=== PATIENT | female | born 1995 | race Caucasian/White ===

== ENCOUNTER 2022-09-28 05:59 | Day surgery (SDC) | payer OTHER, SELFPAY ==
[2022-09-23 11:19] VITALS: BMI 30.1
[2022-09-28 06:30] VITALS: BMI 29.9
[2022-09-28 06:40] VITALS: BP 126/83; PULSE 78; RESP 16; TEMP 36; O2SAT 99
[2022-09-28] MEDS: LACTATED RINGERS 1,000 ML 150 ML IV CONT (06:50)
--- NOTE | 2022-09-28 07:02 | WPDANESEPPF ---
Anes - Initial Pre Proc Eval Procedure: Operation Date: 09/28/22 07:30 Proposed Procedures p Esophagogastroduodenoscopy - Kevin Gotti MD Date/Time: 09/28/22 07:02 Surgeon: Kevin Gotti MD Pre Op Diagnosis: Hematemesis, Gerd without Esophagitis Patient Data Age: 26 Gender: F Height: 1.6 m Weight: 76.8 kg Allergies Allergy/AdvReac Type Severity Reaction Status Date / Time Penicillins Allergy Hives Verified 09/28/22 06:26 bupropion [From Wellbutrin] AdvReac Other Verified 09/28/22 06:26 escitalopram [From Lexapro] AdvReac Other Verified 09/28/22 06:26 sertraline [From Zoloft] AdvReac Other Verified 09/28/22 06:26 Home Medications Medication Instructions Recorded Confirmed Type aripiprazole 2 mg tablet (Abilify) 2 mg PO DAILY #90 tabs 06/02/22 09/28/22 Rx citalopram 10 mg tablet 10 mg PO DAILY #90 tabs 06/02/22 09/28/22 Rx pantoprazole 40 mg tablet,delayed 40 mg PO BID #60 tabs 09/16/22 09/28/22 Rx release Patient hx anesthesia problems: none Family hx anesthesia problems: none Results Review: All pre-operative results and documents have been reviewed as part of the pre-operative evaluation. [facility] Past Medical History Medical History ADD (attention deficit disorder) Anxiety Depression Mood disturbance OCD (obsessive compulsive disorder) Vitamin B 12 deficiency Vitamin D deficiency, unspecified Surgical History Surgical History Cholecystectomy planned (2017) Social History Social History Years smoked: 0.7 Smoking status: Current every day smoker Tobacco type: cigarettes Alcohol intake: never Substance use: current Substance use type: marijuana Living arrangements: with family Spiritual care concerns: No Anes - Eval Final PreProcedure Day of Procedure 09/28/22 07:02 Patient weight: obese Heart: regular rate and rhythm Lungs: clear to auscultation and normal air movement Airway: Mallampati scale class II Neurological: alert and oriented Last oral intake: >/= 8 hours ASA classification: II Emergent: no Anesthetic plan: proceed Anesthesia type and monitoring: general GIVS Results Review: All pre-operative results and documents have been reviewed as part of the pre-operative evaluation. Informed Consent: The patient's anesthetic plan and its attendant risks and benefits were discussed with the patient/family/POA. Questions were solicited and answers provided to the satisfaction of the patient/family/POA.
--- NOTE | 2022-09-28 07:37 | PM.HPGS ---
History of Present Illness History of Present Illness Consent: Risks, benefits, and alternatives have been discussed and questions answered. Patient agrees to proceed with procedure. Chief complaint: Hematemesis, Gerd without Esophagitis Narrative: Martha Uriarte is a 26 year old female Presents for EGD. Patient reports that about 2 weeks ago after a night of drinking she experienced hematemesis. This occurred several other episodes later in the week. During this week she began to have some black melenic stools. For this reason she presents for EGD. Patient states she has ongoing epigastric discomfort. Sometimes nausea. Sometimes heartburn. Several years ago had cholecystectomy for acalculous cholecystitis but this failed to alleviate these symptoms. Patient denies any weight loss. Family history is noncontributory. Current medications include pantoprazole 40mg p.o. b.i.d.. For presumed ulcers. Review of Systems Review of Systems: Review of systems noncontributory. PMFSH Past Medical History Medical History ADD (attention deficit disorder) Anxiety Depression Mood disturbance OCD (obsessive compulsive disorder) Vitamin B 12 deficiency Vitamin D deficiency, unspecified Surgical History Surgical History Cholecystectomy planned (2016) Social History Social History Years smoked: 0.7 Smoking status: Current every day smoker Tobacco type: cigarettes Alcohol intake: never Substance use: current Substance use type: marijuana Living arrangements: with family Spiritual care concerns: No Meds Home Medications and Allergies Home Medications Medication Instructions Recorded Confirmed Type aripiprazole 2 mg tablet (Abilify) 2 mg PO DAILY #90 tabs 06/02/22 09/28/22 Rx citalopram 10 mg tablet 10 mg PO DAILY #90 tabs 06/02/22 09/28/22 Rx pantoprazole 40 mg tablet,delayed 40 mg PO BID #60 tabs 09/16/22 09/28/22 Rx release Allergies Allergy/AdvReac Type Severity Reaction Status Date / Time Penicillins Allergy Hives Verified 09/28/22 06:26 bupropion [From Wellbutrin] AdvReac Other Verified 09/28/22 06:26 escitalopram [From Lexapro] AdvReac Other Verified 09/28/22 06:26 sertraline [From Zoloft] AdvReac Other Verified 09/28/22 06:26 Vital Signs Vital Signs - 24 hr 09/28/22 06:40 Temperature 96.8 F L Pulse Rate 78 Respiratory Rate 16 Blood Pressure 126/83 Pulse Oximetry 99 Oxygen Delivery Room Air Exam Narrative: Physical exam reveals patient be alert. Vital signs stable. HEENT exam is unremarkable. Patient is anicteric. Lungs are clear to auscultation and percussion. Heart is without murmur or extra sounds. Abdomen bowel sounds present soft nontender with no hepatosplenomegaly. Assessment and Plan Assessment and plan (1) Hematemesis: Code(s): K92.0 - Hematemesis Status: Acute Assessment and Plan: patient has has had several episodes of hematemesis 2 weeks ago. Plan for EGD to assess for possible ulcer or other lesions. Agree with trial of pantoprazole for possible ulcer disease. Further recommendations may be given after endoscopy.
[2022-09-28 07:54] VITALS: BP 105/54; PULSE 58; RESP 16; O2SAT 100
[2022-09-28 08:04] VITALS: BP 101/61; PULSE 70; RESP 18; O2SAT 99
[2022-09-28 08:14] VITALS: BP 109/73; PULSE 71; RESP 18; O2SAT 100
--- NOTE | 2022-09-28 10:53 | WPDANESPN ---
Anes - Prog Note Post-Op Date/Time: 09/28/22 10:53 Cardiovascular status: normal Respiratory status: normal Airway patency: baseline Mental status: baseline Post-Op hydration status: normal Vital Signs: Last Vital Signs Temp 36.0 C L 09/28/22 06:40 Pulse 71 09/28/22 08:14 Resp 18 09/28/22 08:14 BP 109/73 09/28/22 08:14 Pulse Ox 100 09/28/22 08:14 O2 Del Method Room Air 09/28/22 08:14 Pain Score (VAS): 0 I/O: Intake & Output 09/27/22 09/28/22 09/28/22 23:59 07:59 15:59 Intake Total 300 50 Balance 300 50 Post-procedural complaints: none Patient Feedback: Patient satisfied with anesthetic care.
== END 2022-09-28 08:33 | disposition home or self-care (01) ==
PROVIDERS: PCP Nurse Practitioner Family; Visit Provider Internal Medicine Gastroenterology
PROC: 0DJ08ZZ Inspection of Upper Intestinal Tract, Via Natural or Artificial Opening Endoscopic (ICD-10-PCS; CPT 43235; principal; 2022-09-28 07:30)
DX: K92.0 Hematemesis (principal)
CPT/HCPCS: 43239

== ENCOUNTER 2024-06-20 12:05 | Outpatient (CLI) | payer OTHER, SELFPAY ==
[2024-06-20 13:22] LABS: Alanine Aminotransferase 25 U/L (6-35); Albumin Level 5.2 g/dL (3.5-5.1); Alkaline Phosphatase 76 U/L (38-126); Aspartate Amino Transferase 30 U/L (14-36); Bilirubin Indirect 2.2 mg/dL (0-1.1); Bilirubin,Total 2.3 mg/dL (0.2-1.3)
--- OUTSIDE RECORDS SUMMARY | 2024-06-20 13:56 | XMS_ITS | Clinical Summary ---
Author Organization [facility] [address] [facility] Address [address] [place] [id number] Care Team Providers Care Cad Operator Name Role Phone Gerald Posey MD Unavailable [phone] Aure Smart NP Primary Care Provider Allergies Active Allergy Reactions Criticality Noted Date Comments Penicillins Hives Medium 02/13/2019 Medications No known medications Active Problems Problem Noted Date Diagnosed Date Rash 08/21/2022 Assessment & Plan (08/21/2022 2:21 PM CDT): ?Eczema. Recommend derm evaluation. Syncope 08/21/2022 Assessment & Plan (08/21/2022 2:21 PM CDT): She reports syncopal episode x2 which was accompanied by a racing heart/palpitations, dizziness, and diaphoresis. Discuss with PCP and consider cardiology evaluation. Diarrhea 08/21/2022 Assessment & Plan (08/21/2022 2:23 PM CDT): She notes 5-10 bowel movements per day. She has also had nocturnal bowel movements as well as tenesmus. She reports a largely unremarkable EGD and colonoscopy in 2020. Recommend GI evaluation. Polyarthralgia 08/19/2022 Overview (09/29/2022): Labs 08/21/2022 AVISE: ULISSES 1:160 CBC and CMP unremarkable ESR and CRP wnl Ultrasound 08/26/2022 US right hand/wrist: Grade 1 effusion in the radial scaphoid joint and 2nd and 3rd MCP joints. Marked synovial thickening in the 2nd and 3rd PIP joints. Assessment & Plan (10/22/2022 2:36 PM CDT): 26yoQing presents for evaluation due to a broad constellation of symptoms for the last 2+ years. She reports myalgias and arthralgias that do not sound particularly inflammatory. She has had rashes primarily on her arms, today has dry/flaky skin on her hands/wrists which she attributes to frequent washing due to her OCD. She has chronic GI complaints with a reportedly negative colonoscopy. By exam she has numerous tender points and tender joints without synovitis. Our workup shows an isolated ULISSES and hand ultrasound without significant inflammatory arthritis. Overall there is not evidence to support an active rheumatologic diagnosis. Overall favor fibromyalgia and with her constellation of other symptoms would also consider overlap with IBS and potentially POTS. Recommend derm evaluation for skin and GI for her chronic gastrointestinal symptoms. Otherwise she will follow up with PCP and can return here as needed. Assessment & Plan (08/21/2022 2:20 PM CDT): 26yoQing presents for evaluation due to a broad constellation of symptoms for the last 2+ years. She reports myalgias and arthralgias that do not sound particularly inflammatory. She has had rashes primarily on her arms, today has dry/flaky skin on her hands/wrists which she attributes to frequent washing due to her OCD. She has chronic GI complaints with a reportedly negative colonoscopy. By exam today she has numerous tender points and tender joints without synovitis. Overall suspect fibromyalgia and with her constellation of other symptoms would also consider overlap with IBS and potentially POTS. Recommend derm evaluation for skin and GI for her chronic gastrointestinal symptoms. To further evaluate for underlying rheumatologic diagnosis, will check labs as below and obtain an US of her hand/wrist to look for inflammatory arthritis. Plan for follow up in 2 weeks to review results. Social History Tobacco Use Types Packs/Day Years Used Date Smoking Tobacco: Never Assessed Comments Unknown Sex and Gender Information Value Date Recorded Sex Assigned at Not on file Legal Sex Female 2:20 PM CDT Gender Identity Not on file Sexual Orientation Not on file Obstetrics History Last Filed Vital Signs Vital Sign Reading Time Taken Comments Blood Pressure 126/74 10/22/2022 1:46 PM CDT Pulse 70 10/22/2022 1:46 PM CDT Temperature - - Respiratory Rate - - Oxygen Saturation 97% 10/22/2022 1:46 PM CDT Inhaled Oxygen Concentration - - Weight 78 kg (172 lb) 10/22/2022 1:46 PM CDT Height 160 cm (5' 3 ) 10/22/2022 1:46 PM CDT Body Mass Index 30.47 10/22/2022 1:46 PM CDT Plan of Treatment Health Maintenance Due Date Last Done Comments Cervical Cancer Screening 1997 Depression Screening 1997 Hepatitis C Screening 1997 DTaP/Tdap/Td Vaccine (1 - Tdap) 2008 Varicella Vaccines (1 of 2 - 13+ 2-dose series) 2010 HPV Vaccines (1 - 3-dose series) 2012 Hepatitis B Screening 11/14/2015 Regular Well Visit/Exam 18-64 11/14/2015 Influenza Vaccine (#1) 2023 Pneumococcal vaccine <65 Aged Out No longer eligible based on patient's age to complete this topic Insurance [facility] CHOICE PLUS [facility] HMO/PPO Address: [facility] [address] [address] Care Teams Cad Operator Relationship Specialty Start Date End Date Aure Smart NP [address] [place] [id number] PCP - General Nurse Practitioner 10/22/22 Gerald Posey MD [facility] [place] [address] Consulting Physician Rheumatology 08/06/22
--- OUTSIDE RECORDS SUMMARY | 2024-06-20 13:56 | XMS_ITS | Referral Summary ---
Author Organization [facility] Address [address] [address] Care Team Providers Care Fudger Name Role Phone Unavailable Primary Care Provider Unavailabl e Source Comments [facility],non-owned Affiliates and Associated Physician Practices is amultiple site organization consisting of ambulatory clinics and hospital sitesin [place], [place], [place] and [place]. This disclosure is being madepursuant to the Care Everywhere program and may not contain all information available regarding this patient. Last updated 18.[facility] Allergies Active Allergy Reactions Criticality Noted Date Comments Penicillins Rash Medium 02/12/2019 Medications * Be aware that medications may not be up to date on this document. Alwaysverify current medications with the patient. Medication Sig Dispensed Refills Start Date End Date Status Escitalopram Oxalate (LEXAPRO PO) Active Social History Tobacco Use Types Packs/Day Years Used Date Smoking Tobacco: Never Smokeless Tobacco: Never Sex and Gender Information Value Date Recorded Sex Assigned at Not on file Gender Identity Not on file Sexual Orientation Not on file Last Filed Vital Signs Vital Sign Reading Time Taken Comments Blood Pressure 120/78 05/31/2019 3:04 PM STILL PHOTOGRAPHER Pulse 89 05/31/2019 3:04 PM STILL PHOTOGRAPHER Temperature 37.4 C (99.3 F) 05/31/2019 3:04 PM STILL PHOTOGRAPHER Respiratory Rate 16 05/31/2019 3:04 PM STILL PHOTOGRAPHER Oxygen Saturation 98% 05/31/2019 3:04 PM STILL PHOTOGRAPHER Inhaled Oxygen Concentration - - Weight 81.6 kg (180 lb) 05/31/2019 3:04 PM STILL PHOTOGRAPHER Height 160 cm (5' 3 ) 05/31/2019 3:04 PM STILL PHOTOGRAPHER Body Mass Index 31.89 05/31/2019 3:04 PM STILL PHOTOGRAPHER Plan of Treatment Not on file
--- OUTSIDE RECORDS SUMMARY | 2024-06-20 13:56 | XMS_ITS | Clinical Summary ---
Author Organization [facility] Address [address] [place] [address] Care Team Providers Care Design Checker Name Role Phone Unavailable Primary Care Provider Unavailabl e Source Comments [facility],non-owned Affiliates and Associated Physician Practices is amultiple site organization consisting of ambulatory clinics and hospital sitesin [place], [place], [place] and [place]. This disclosure is being madepursuant to the Care Everywhere program and may not contain all information available regarding this patient. Last updated 18.[facility] Allergies Active Allergy Reactions Criticality Noted Date [...] Comments Blood Pressure 120/78 05/31/2019 3:04 PM CRULLER MAKER Pulse 89 05/31/2019 3:04 PM CRULLER MAKER Temperature 37.4 C (99.3 F) 05/31/2019 3:04 PM CRULLER MAKER Respiratory Rate 16 05/31/2019 3:04 PM CRULLER MAKER Oxygen Saturation 98% 05/31/2019 3:04 PM CRULLER MAKER Inhaled Oxygen Concentration - - Weight 81.6 kg (180 lb) 05/31/2019 3:04 PM CRULLER MAKER Height 160 cm (5' 3 ) 05/31/2019 3:04 PM CRULLER MAKER Body Mass Index 31.89 05/31/2019 3:04 PM CRULLER MAKER Plan of Treatment Health Maintenance Due Date Last Done Comments PAP SMEAR 1997 HIV SCREENING 2012 HPV VACCINE (1 - 3-dose series) 2012 HEPATITIS C SCREENING 11/09/2015 DTAP/TDAP/TD VACCINES (1 - Tdap) 2016 HEPATITIS B VACCINE (1 of 3 - 19+ 3-dose series) 2016 COVID-19 VACCINE (1 - 2023-2 5 season) 2023 INFLUENZA VACCINE (#1) 2023 DEPRESSION SCREENING 04/26/2024 ZOSTER VACCINE (1 of 2) 11/14/2047 HIB VACCINE Aged Out No longer eligi ble based on patient's age to complete this topic MENINGOCOCCAL (Group B) VACCINE Aged Out No longer eligible based on patient's age to complete this topic MENINGOCOCCAL VACCINE Aged Out No lula faviola eligible based on patient's age to complete this topic PNEUMOCOCCAL VACCINE Aged Out No long er eligible based on patient's age to complete this topic
--- OUTSIDE RECORDS SUMMARY | 2024-06-20 13:56 | XMS_ITS | Patient Health Summary ---
Author Organization [facility] Address [address] [place] [address] Care Team Providers Care Structural Engineer Name Role Phone Unavailable Primary Care Provider Unavailabl e Note from [facility],non-owned Affiliates and Associated Physician Practices is amultiple site organization consisting of ambulatory clinics and hospital sitesin [place], [place], [place] and [place]. This disclosure is being madepursuant to the Care Everywhere program and may not contain all information available regarding this patient. Last updated 18.[facility] Allergies * Penicillins(Rash) -Medium Criticality Medications * Be aware that medications may not be up to date on this document. Alwaysverify current medications with the patient. * Escitalopram Oxalate (LEXAPRO PO) Social History Tobacco Use Types Packs/Day Years Used Date Smoking Tobacco: Never Smokeless Tobacco: Never Sex and Gender Information Value Date Recorded Sex Assigned at Not on file Gender Identity Not on file Sexual Orientation Not on file Last Filed Vital Signs Vital Sign Reading Time Taken Comments Blood Pressure 120/78 05/31/2019 3:04 PM PATIENT EDUCATOR Pulse 89 05/31/2019 3:04 PM PATIENT EDUCATOR Temperature 37.4 C (99.3 F) 05/31/2019 3:04 PM PATIENT EDUCATOR Respiratory Rate 16 05/31/2019 3:04 PM PATIENT EDUCATOR Oxygen Saturation 98% 05/31/2019 3:04 PM PATIENT EDUCATOR Inhaled Oxygen Concentration - - Weight 81.6 kg (180 lb) 05/31/2019 3:04 PM PATIENT EDUCATOR Height 160 cm (5' 3 ) 05/31/2019 3:04 PM PATIENT EDUCATOR Body Mass Index 31.89 05/31/2019 3:04 PM PATIENT EDUCATOR Procedures * INFLUENZA A+B - POINT OF CARE (AMB)(Performed 05/31/2019) Performed for Influenza A * STREP A SCREEN - POINT OF CARE (AMB) STL(Performed 02/12/2019) Performed for Acute frontal sinusitis, recurrence not specified, Fever, unspecified fever cause * INFLUENZA A+B - POINT OF CARE (AMB)(Performed 02/12/2019) Performed for Acute frontal sinusitis, recurrence not specified, Fever, unspecified fever cause Results * (ABNORMAL) INFLUENZA A+B - POINT OF CARE (AMB) (05/31/2019) Only the most recent of2 resultswithin the time period is included. Influenza A Antigen Rapid Positive(A) Negative Influenza B Antigen Rapid Negative Negative Influenza Internal Control positive NEGATIVE - POSITIVE Influenza Lot Number [id number] Influenza Expiration Date 03/08/2021 Other NASOPHARYNGEAL SWAB / Unknown 05/31/2019 Benjie Scott PRESIDENT AND CHIEF OPERATING OFFICER-[facility] - POINT OF CARE ORDERABLES * STREP A SCREEN - POINT OF CARE (AMB) STL (02/12/2019) Strep A Rapid POCT Negative Negative Strep A Internal Control Present Lot # [id number] Expiration Date 04/25/20 Throat ENTIRE THROAT (SURFACE REGION OF NECK) / Unknown 02/12/2019 Antonia Moses PRESIDENT AND CHIEF OPERATING OFFICER-[facility] - POINT OF CA RE ORDERABLES
--- OUTSIDE RECORDS SUMMARY | 2024-06-20 13:56 | XMS_ITS | Clinical Summary ---
Author Organization [facility] Address [address] [place] [address] Care Team Providers Care Gas Charger Name Role Phone Aure Smart Primary Care Provider [phone] Allergies Active Allergy Reactions Criticality Noted Date Comments Penicillins Hives 02/13/2019 Medications citalopram 40 MG tablet Take 40 mg by mouth daily. Active pantoprazole EC (PROTONIX) 40 MG tablet Take 1 tablet (40 mg total) by mouth daily. 14 tablet 0 Active vitamin D3, cholecalciferol, 1.25 MG (07560 UT) capsule TAKE 1 CAPSULE BY MOUTH ONCE PER WEEK 1 Active albuterol sulfate HFA 108 (90 Base) MCG/ACT inhaler Inhale 2 puffs into the lungs every 6 (six) hours as needed for Wheezing. 8 g 2 Active guaiFENesin ER 600 MG 12 hr tablet Take 2 tablets (1,200 mg total) by mouth 2 (two) times daily. 28 tablet 2 Active ARIPiprazole (ABILIFY) 5 MG tablet Take 0.5 tablets (2.5 mg total) by mouth daily. 2 Active traZODone (DESYREL) 100 MG tablet Take 1 tablet (100 mg total) by mouth nightly at bedtime. 2 Active citalopram (CELEXA) 20 MG tablet Take 1 tablet (20 mg total) by mouth daily. 3 Active pantoprazole EC (PROTONIX) 20 MG tablet Take 1 tablet (20 mg total) by mouth daily. 3 Active ondansetron (ZOFRAN-ODT) 4 MG disintegrating tablet Take 1 tablet (4 mg total) by mouth every 8 (eight) hours as needed for Nausea. 15 tablet 3 Active dicyclomine (BENTYL) 20 MG tablet TAKE 1 TABLET BY MOUTH EVERY 6 HOURS. 360 tablet 1 3 Active ondansetron (ZOFRAN-ODT) 8 MG disintegrating tablet Take 1 tablet (8 mg total) by mouth every 8 (eight) hours as needed for Nausea. 20 tablet 4 Active dicyclomine (BENTYL) 20 MG tablet Take 1 tablet (20 mg total) by mouth every 6 (six) hours. 120 tablet 4 Active sucralfate (CARAFATE) 1 GM/10ML suspension Take 10 mLs (1 g total) by mouth 4 (four) times daily as needed. 420 mL 5 07/09/19 25 Active Active Problems No known active problems Encounters Date Type Department Care Team Description 06/08/2024 9:32 AM EDGE BLACKER - 06/08/2024 12:25 PM [facility] Emergency [facility] Emergency Room [address] [place] [address] Brian Salazar, Vomiting; Diarrhea Discharge Disposition: Home or Self Care (Routine Discharge) 06/08/2024 Travel from Last 3 Months Family History Medical History Relation Comments gall bladder removal Mother Relation Status Comments Mother Social History Tobacco Use Types Packs/Day Years Used Date Smoking Tobacco: Never Smokeless Tobacco: Never Tobacco Cessation:Counseling Given: Not Answered Alcohol Use Standard Drinks/Week Comments Yes 0 (1 standard drink = 0.6 oz pur e alcohol) occassionally AUDIT-C Answer Date Recorded Frequency of Alcohol Consumption Never 02/13/2019 Average Number of Drinks Not on file 019 Frequency of Binge Drinking Not on file 01/25 Comments No Sex and Gender Information Value Date Recorded Sex Assigned at Female 06/08/2024 9:36 AM EDGE BLACKER Legal Sex Female 6:32 PM CDT Gender Identity Female 06/08/2024 9:36 AM EDGE BLACKER Sexual Orientation Not on file Last Filed Vital Signs Vital Sign Reading Time Taken Comments Blood Pressure 123/79 06/08/2024 12:23 PM EDGE BLACKER Pulse 75 06/08/2024 12:23 PM EDGE BLACKER Temperature 36.5 C (97.7 F) 06/08/2024 9:30 AM EDGE BLACKER Respiratory Rate 16 06/08/2024 12:23 PM EDGE BLACKER Oxygen Saturation 100% 06/08/2024 12:23 PM EDGE BLACKER Inhaled Oxygen Concentration - - Weight 75.9 kg (167 lb 5.3 oz) 06/08/2024 9:30 A M EDGE BLACKER Height 160 cm (5' 3 ) 06/08/2024 9:30 AM EDGE BLACKER Body Mass Index 29.64 06/08/2024 9:30 AM EDGE BLACKER Plan of Treatment Health Maintenance Due Date Last Done Comments Cervical Cancer Screening Pa p Smear (Age 21 to 29) Every 3 Years 1997 Cervical Cancer Screening 1997 Annual Physical 2000 HPV Vaccines (1 - 3-dose series) 2012 Hepatitis C 11/14/2015 DTaP, Tdap and Td Vaccines ( 1 - Tdap) 2016 Hepatitis B Vaccines (1 of 3 - 19+ 3-dose series) 2016 COVID-19 Vaccine ( - 2023-2 5 season) 2023 Influenza Adult (#1) 2024 PHQ-2 (Physician [place]) 04/26/2024 Meningococcal B Vaccine Aged Out No l onger eligible based on patient's age to complete this topic Meningococcal Vaccine Aged Out No lula faviola eligible based on patient's age to complete this topic Pneumococcal Vaccine: Pediat rics (0 to 5 Years) and At-Risk Patients (6 to 64 Years) Aged Out No longer eligible b ased on patient's age to complete this topic RSV Immunizations Under 20 Months Aged Out No longer eligible based on patient's age to complete this topic Procedures Procedure Name Priority Date/Time Associated Diagnosis Comments CT ABD+PEL W CON STAT 06/08/2024 11:0 2 AM EDGE BLACKER TEST URINE STAT 06/08/2024 10:30 AM EDGE BLACKER URINALYSIS, AUTO, COMPLETE STAT 06/08/2024 10:30 AM EDGE BLACKER ECG 12-LEAD STAT 06/08/2024 10:11 AM EDGE BLACKER LIPASE STAT 06/08/2024 9:34 AM EDGE BLACKER CBC W/DIFF AUTOMATED STAT 06/08/2024 9:34 AM EDGE BLACKER COMPREHENSIVE METABOLIC PANEL STAT 06/08/2024 9:34 AM EDGE BLACKER from Last 3 Months Results * CT ABD+PEL W CON (06/08/2024 11:02 AM EDGE BLACKER) Anatomical Region Laterality Modality Abdomen Computed Tomogra phy 06/08/2024 11:1 8 AM EDGE BLACKER Impressions 06/08/2024 11:29 AM EDGE BLACKER Impression: 1. No acute abnormalities identified within the abdomen or pelvis. 2. Borderline splenomegaly. Ordered By: BRIAN SALAZAR Interpreted By: Eyad Jacques MD, 06/08/2024 11:18 AM Narrative 06/08/2024 11:29 AM EDGE BLACKER [facility] [address] [facility]. [place] [id number] Examination: CT abdomen and pelvis with IV contrast. Clinical Information: VOMITING AND DIARRHEA WITH ABDOMINAL PAIN Comparison:CT 12/06/2023. Technique: IV contrast: 75 mL Isovue 370. Oral contrast: None. Technical comments: Standard technique. Dose reduction: This CT exam was performed using one or more of the following dose reduction techniques: Automated exposure control, adjustment of the mA and/or kV according to patient size, and/or use of iterative reconstruction technique. Findings: LOWER CHEST Heart is normal in size. Lung bases are clear. No pleural or pericardial effusions. UPPER ABDOMEN Liver and bile ducts: No suspicious focal liver lesion. Focal fatty infiltration noted along the anterior liver near the fissure. Portal vein and hepatic veins are patent. No biliary dilatation. Gallbladder: Surgically absent. Pancreas: Unremarkable. Spleen: The spleen is borderline enlarged measuring 13 cm craniocaudal. RETROPERITONEUM Adrenals: Normal. Kidneys: Enhance symmetrically with no solid mass or hydronephrosis. Lymph nodes: No lymphadenopathy in the abdomen or pelvis. BOWEL AND PERITONEUM Bowel: Normal in caliber and wall thickness. The appendix is normal. No inflammatory process noted. Free air or fluid: None. VASCULATURE The abdominal aorta is normal in caliber. PELVIS Physiologic ovarian follicles noted bilaterally. The urinary bladder appears decompressed but otherwise unremarkable. BONES/SOFT TISSUES No significant lesion. Procedure Note Eyad Jacques MD - 06/08/2024 [facility] [address] [place] [address] Examination: CT abdomen and pelvis with IV contrast. Clinical Information: VOMITING AND DIARRHEA WITH ABDOMINAL PAIN Comparison:CT 12/06/2023. Technique: IV contrast: 75 mL Isovue 370. Oral contrast: None. Technical comments: Standard technique. Dose reduction: This CT exam was performed using one or more of thefollowing dose reduction techniques: Automated exposure control,adjustment of the mA and/or kV according to patient size, and/or use ofiterative reconstruction technique. Findings: LOWER CHEST Heart is normal in size. Lung bases are clear. No pleural or pericardialeffusions. UPPER ABDOMEN Liver and bile ducts: No suspicious focal liver lesion. Focal fattyinfiltration noted along the anterior liver near the fissure. Portal veinand hepatic veins are patent. No biliary dilatation. Gallbladder: Surgically absent. Pancreas: Unremarkable. Spleen: The spleen is borderline enlarged measuring 13 cm craniocaudal. RETROPERITONEUM Adrenals: Normal. Kidneys: Enhance symmetrically with no solid mass or hydronephrosis. Lymph nodes: No lymphadenopathy in the abdomen or pelvis. BOWEL AND PERITONEUM Bowel: Normal in caliber and wall thickness. The appendix is normal. Noinflammatory process noted. Free air or fluid: None. VASCULATURE The abdominal aorta is normal in caliber. PELVIS Physiologic ovarian follicles noted bilaterally. The urinary bladderappears decompressed but otherwise unremarkable. BONES/SOFT TISSUES No significant lesion. Impression: 1. No acute abnormalities identified within the abdomen or pelvis. 2. Borderline splenomegaly. Ordered By: BRIAN SALAZAR Interpreted By: Eyad Jacques MD, 06/08/2024 11:18 AM Brian Salazar DO CT Final Result * TEST URINE (06/08/2024 10:30 AM EDGE BLACKER) URINE HCG TEST NEGATIVE NEGATIVE 06/08/2024 10:41 AM [facility] Comment: VERY DILUTE URINE SPECIMENS MAY NOT CONTAIN REVENUE FIELD AUDITOR LEVELS OF HCG. IF IS STILL SUSPECTED, A SERUM HCG TEST IS RECOMMENDED. URINE SPECIMEN FROM URETHRA / Unknown 06/08/2024 10:30 AM EDGE BLACKER Brian Salazar DO URINE ORDERABLES Final Result [facility] [address] [place] [address], [place] [phone] * (ABNORMAL) Urinalysis, Auto, Complete (06/08/2024 10:30 AM EDGE BLACKER) COLOR (U) YELLOW 06/08/2024 10:47 AM [facility] TRANSPARENCY CLEAR 06/08/2024 10:47 AM [facility] SPECIFIC GRAVITY (U) 1.020 1.000 - 1.030 06/08/2024 10:47 AM [facility] U PH 6.5 5.0 - 9.0 06/08/2024 10:47 AM [facility] LEUKOCYTES (U) TRACE(A) NEGATIVE 06/08/2024 10:47 AM [facility] NITRITES NEGATIVE NEGATIVE 06/08/2024 10:47 AM [facility] PROTEIN RANDOM (U) TRACE(A) NEGATIVE 06/08/2024 10:47 AM [facility] GLUCOSE (U) NEGATIVE NEGATIVE 06/08/2024 10:47 AM [facility] KETONES MG/DL (U) TRACE(A) NEGATIVE 06/08/2024 10:47 AM EDGE BLACKER [facility] BILIRUBIN (U) NEGATIVE NEGATIVE 06/08/2024 10:47 AM [facility] BLOOD (U) 2+(A) NEGATIVE 06/08/2024 10:47 AM [facility] WBC/HPF NONE SEEN 0 - 5 /HPF 06/08/2024 10:47 AM EDGE BLACKER [facility] RBC/HPF 0-5 0 - 5 /HPF 06/08/2024 10:47 AM EDGE BLACKER [facility] EPI/HPF FEW /HPF 06/08/2024 10:47 AM [facility] URINE SPECIMEN / Unknown 06/08/2024 10:30 AM EDGE BLACKER Brian Salazar DO URINE ORDERABLES Final Result Performing Organization Address City/State/[facility] Co de Phone Number [facility] [address] [place] [address], * ECG 12 lead (06/08/2024 10:11 AM EDGE BLACKER) 06/08/2024 10:1 1 [address] EDGE BLACK[address] [facility] RAD - 06/08/2024 7:39 PM [facility] Test Date: 2024-06-08 Pat Name: MARTHA CUI Department: 85 Room: [facility] Gender: Female Offshore Diver: : 1995 Requested By: BRIAN SALAZAR Order Number: [id number] Elyse MD: Soto Bella Measurements Intervals [place] Rate: 67 P: 24 PA: 155 QRS: 42 QRSD: 84 T: 35 QT: 378 QTc: 402 Interpretive Statements SINUS RHYTHM Compared to ECG 03/10/2023 11:30:24 Sinus arrhythmia no longer present BLACKER Procedure Note Soto Bella MD - 06/08/2024 [facility] Test Date: 2024-06-08 Pat Name: MARTHA CUI Department: 85 Room: [facility] Gender: Female Offshore Diver: : 1995 Requested By: BRIAN SALAZAR Order Number: [id number] Reading MD: Soto Bella Measurements Intervals [place] Rate: 67 P: 24 PA: 155 QRS: 42 QRSD: 84 T: 35 QT: 378 QTc: 402 Interpretive Statements SINUS RHYTHM Compared to ECG 03/10/2023 11:30:24 Sinus arrhythmia no longer present BLACKER us Brian Salazar DO ECG ORDERABLES Final Result [facility]) RAD * (ABNORMAL) COMPREHENSIVE METABOLIC PANEL (06/08/2024 9:34 AM EDGE BLACKER) GLUCOSE 100(H) 70 - 99 MG/DL 06/08/2024 10:20 AM [facility] BUN 12 7 - 18 MG/DL 06/08/2024 10:20 AM [facility] CREATININE S/P/B 1.24(H) 0.55 - 1.02 MG/DL 06/08/2024 10:20 AM [facility] SODIUM S/P/B 141 136 - 145 MMOL/L 06/08/2024 10:20 AM [facility] POTASSIUM S/P/B 4.0 3.5 - 5.1 MMOL/L 06/08/2024 10:20 AM [facility] CHLORIDE S/P/B 102 100 - 108 MMOL/L 06/08/2024 10:20 AM [facility] CO2 22.0 21 - 32 MMOL/L 06/08/2024 10:20 AM [facility] CALCIUM S/P/B 10.2(H) 8.5 - 10.1 MG/DL 06/08/2024 10:20 AM [facility] BILIRUBIN TOTAL S/P/B 2.7(H) 0.2 - 1.2 MG/DL 06/08/2024 10:20 AM [facility] TOTAL PROTEIN S/P/B 8.2 6.4 - 8.2 G/DL 06/08/2024 10:20 AM [facility] ALBUMIN S/P/B 4.8 3.4 - 5.0 G/DL 06/08/2024 10:20 AM [facility] AST 13(L) 15 - 37 U/L 06/08/2024 10:20 AM [facility] ALT 16 14 - 55 U/L 06/08/2024 10:20 AM [facility] ALKALINE PHOSPHATASE S/P/B 89 50 - 136 U/L 06/08/2024 10:20 AM [facility] ANION GAP 17.0(H) 5 - 15 MMOL/L 06/08/2024 10:20 AM [facility] BUN CREATININE RATIO 9.7 6 - 26 06/08/2024 10:20 AM [facility] A/G RATIO 1.4 1.0 - 2.0 RATIO 06/08/2024 10:20 AM [facility] GFR ESTIMATE 62(L) >90 ML/MIN/1.7 3 M2 06/08/2024 10:20 AM [facility] Comment: NOTE: eGFR is not calculated for patients <18 years of age. This is an estimated GFR calculation using the new CKD EPI creatinine equation without race and so does not require a correction factor for race. This estimated GFR should not be used for calculating drug doses. 06/08/2024 9:34 AM EDGE BLACKER Brian Salazar DO LABORATORY Final Result [facility] [address] [place] [address], [place] [phone] * (ABNORMAL) CBC W/DIFF AUTOMATED (06/08/2024 9:34 AM EDGE BLACKER) WBC 8.39 4.4 - 11.0 x10'3/uL 06/08/2024 10:08 AM [facility] RBC 5.04 4.50 - 5.10 x10'6/uL 06/08/2024 10:08 AM [facility] HGB 15.2 12.3 - 15.3 G/DL 06/08/2024 10:08 AM [facility] HCT 43.2 35.9 - 44.6 % 06/08/2024 10:08 AM [facility] MCV 85.7 80.0 - 96.0 FL 06/08/2024 10:08 AM [facility] MCH 30.2 25.3 - 30.9 PG 06/08/2024 10:08 AM [facility] MCHC 35.2(H) 31.0 - 34.1 G/DL 06/08/2024 10:08 AM [facility] RDW 12.3(L) 12.4 - 15.1 % 06/08/2024 10:08 AM [facility] PLT 409(H) 151 - 353 x10'3/uL 06/08/2024 10:08 AM [facility] MPV 9.8 9.6 - 12.0 FL 06/08/2024 10:08 AM [facility] RBC MORPHOLOGY NORMAL 06/08/2024 10:08 AM [facility] PLT MORPH. NORMAL 06/08/2024 10:08 AM [facility] WBC MORPHOLOGY NORMAL 06/08/2024 10:08 AM [facility] LYMPHOCYTES % 21.0 15.8 - 45.0 % 06/08/2024 10:08 AM [facility] NEUTROPHILS % 71.2 42.1 - 71.9 % 06/08/2024 10:08 AM [facility] MONOCYTES % 6.8 5.7 - 12.5 % 06/08/2024 10:08 AM [facility] EOSINOPHILS 0.4 0.0 - 5.6 % 06/08/2024 10:08 AM [facility] BASOPHILS 0.2 0.0 - 1.3 % 06/08/2024 10:08 AM [facility] ABS. NEUTROPHILS 5.98 1.40 - 6.00 x10'3/uL 06/08/2024 10:08 AM [facility] IMMATURE GRANS % 0.4 0.0 - 0.5 % 06/08/2024 10:08 AM [facility] ABS. LYMPHOCYTES 1.76 0.80 - 4.70 x10'3/uL 06/08/2024 10:08 AM [facility] 06/08/2024 9:34 AM EDGE BLACKER us Brian Salazar DO LABORATORY Final Result [facility] [address] [place] [address], * LIPASE (06/08/2024 9:34 AM EDGE BLACKER) LIPASE 47 16 - 77 UNITS/L 06/08/2024 10:20 AM EDGE BLACKER [facility] 06/08/2024 9:34 AM EDGE BLACKER Brian Salazar DO LABORATORY Final Result [facility] [address] [place] [address], [place] [phone] from Last 3 Months Insurance [employer] Care Teams Gas Charger Relationship Specialty Start Date End Date Aure Smart FNP [address] [place] [id number] PCP - General Nurse Practitioner Family 06/08/24
--- OUTSIDE RECORDS SUMMARY | 2024-06-20 13:56 | XMS_ITS | Encounter Summary ---
Author Organization [facility] Address [address] [place] [address] Care Team Providers Care Vehicle Mechanic Name Role Phone Karan Crump MD Primary Care Provider [phone] Vida Alicea Primary Care Provider [phone] Vida Alicea Primary Care Provider [phone] Aure Smart Primary Care Provider [phone] Encounter Details Date Type Department Care Team (Late st Contact Info) Description 09/12/2020 Prep for Procedure [facility] [address] [place] [address] Juan M Root MD [address] [facility] [address] [place] [address] Social History Tobacco Use Types Packs/Day Years Used Date Smoking Tobacco: Never Smokeless Tobacco: Never Alcohol Use Standard Drinks/Week Comments No 0 (1 standard drink = 0.6 oz pur e alcohol) AUDIT-C Answer Date Recorded Frequency of Alcohol Consumption Never 02/13/2019 Average Number of Drinks Not on file 019 Frequency of Binge Drinking Not on file 01/25 Comments No Sex and Gender Information Value Date Recorded Sex Assigned at Female 06/08/2024 9:36 AM VP SOFTWARE ENGINEERING Legal Sex Female 6:32 PM CDT Gender Identity Female 06/08/2024 9:36 AM VP SOFTWARE ENGINEERING Sexual Orientation Not on file COVID-19 Exposure Response Date Recorded In the last month, have you been in contact with someone who was confirmed or suspected to have Coronavirus / COVID-19? No / Unsure 09/12/2020 1:27 PM CDT documented as of this encounter Plan of Treatment Not on file documented as of this encounter Results * PRE-SURGICAL/PRE-PROCEDURE CORONAVIRUS (COVID 19) (09/16/2020 11:02 AM CDT) SPECIMEN SOURCE NASOPHARYNGEAL SWAB 09/16/2020 10:55 AM CDT [facility] CORONAVIRUS SARS COV 2 PCR (RESP) NEGATIVE NEGATIVE 09/17/2020 1:26 PM CDT [facility] Comment: THE SARS-CoV-2 TEST HAS BEEN AUTHORIZED BY THE FDA UNDER AN EUA FOR USE BY AUTHORIZED LABORATORIES. PERFORMED BY NUCLEIC ACID AMPLIFICATION PCR FIRST TEST YES 09/16/2020 10:55 AM CDT [facility] EMPLOYED IN HEALTHCARE NO 09/16/2020 10:55 AM CDT [facility] SYMPTOMATIC DEFINED BY CDC NO 09/16/2020 10:55 AM CDT [facility] HOSPITALIZATION STATUS NO 09/16/2020 10:55 AM CDT [facility] PATIENT IN ICU NO 09/16/2020 10:55 AM CDT [facility] RESIDENT OF [facility] NO 09/16/2020 10:55 AM CDT [facility] NOT 09/16/2020 10:55 AM CDT [facility] NASOPHARYNGEAL SWAB / Unknown 09/16/2020 11:02 AM CDT us Juan M Root MD MICROBIOLOGY - GENERAL ORDRoberta ADKINS Final Result [facility] [address] [place] [address], [place] [phone] [facility] [address] [place] [address], documented in this encounter Visit Diagnoses Diagnosis Pre-op testing- Primary Preoperative examination, unspecified documented in this encounter Additional Health Concerns Infection Onset Date Last Indicated Resolved Time COVID-19 Rule Out 09/16/2020 09/16/2020 09/17/2020 1:26 PM CDT documented as of this encounter Care Teams Vehicle Mechanic Relationship Specialty Start Date End Date Karan Crump MD [address] [place] [phone] PCP - General INTERNAL MEDICINE 02/13/19 12/17/21 Vida Alicea PA [address] [place] [address] PCP - General PHYSICIAN WIRELESS CONSTRUCTION MANAGER 12/18/21 09/12/22 Vida Alicea PA [address] [place] [address] PCP - General PHYSICIAN WIRELESS CONSTRUCTION MANAGER 09/13/22 06/07/24 Aure Smart FNP [address] [place] [phone] PCP - General Nurse Practitioner Family 06/08/24 documented as of this encounter
--- OUTSIDE RECORDS SUMMARY | 2024-06-20 13:56 | XMS_ITS | Referral Summary ---
Author Organization [facility] [address] [facility] Address [address] [place] [id number] Care Team Providers Care Refrigeration Mechanic Name Role Phone Gerald Posey MD Unavailable Aure Smart NP Primary Care Provider [phone] Allergies Active Allergy Reactions Criticality Noted Date [...] 10/22/2022 1:46 PM CDT Plan of Treatment Not on file Insurance [id number] PLUS [place] [phone] Care Teams Refrigeration Mechanic Relationship Specialty Start Date End Date Aure Smart NP [address] [place] [address] PCP - General Nurse Practitioner 10/22/22 Gerald Posey MD [facility] [place] [address] Consulting Physician Rheumatology 08/06/22
[2024-06-22 17:03] LABS: Immunoglobulin A 226 mg/dL (47-310); TTG IGA AB <1.0 U/mL
== END 2024-06-20 12:06 | disposition home or self-care (01) ==
PROVIDERS: PCP Nurse Practitioner Family; Referring Provider Nurse Practitioner; Visit Provider Nurse Practitioner Family
DX: R00.0 Tachycardia, unspecified (principal); R11.15 Cyclical vomiting syndrome unrelated to migraine; E80.6 Other disorders of bilirubin metabolism; R00.2 Palpitations
CPT/HCPCS: 36415; 80076; 82784; 86364; 93242

== ENCOUNTER 2025-01-12 14:45 | Outpatient (RCR) | payer OTHER, SELFPAY ==
--- NOTE | 2024-12-05 16:26 | PTOPEVAL1 ---
Assessment and note entered by Xiomy Mohr, PT Evaluation Information Assessment Status Evaluation Diagnosis Pain in unspecified joint, Fibromyalgia ICD-10 Condition Codes (PT) Cervicalgia M54.2,Weakness R53.1 Other ICD-10 Condition Codes ( Abnormal posture PT) Subjective Information Pt reports has had pain and instability as long as she can remember. thinks at one point thinks had a partial or full dislocation right shoulder resolved on it's own. 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 Reports would sleep laying flat and would wake up in a sweat, full body warmth, felt like was sick or would pass out. Sleeping inclined was better. Rheumatology diagnosed her and sent her back to PCP for treatment. Has tried the elimination diet previously. has a new GI and is going to try again. Has a foam roller that helps a lot with the muscle knots, especially back has always been hard as a rock. recently used K-T tape in the shoulder which helped even with knot. equate brand Sleeping on left side with pillow under chin and also needs support for RUE. Pillow support for RUE . Will at times will get a sudden sharp pain in the left side of neck has to lean away and massage left side of neck until it can go back into place Marijuana helps pain. has relief for about 2 hours. Indicia at night for bed and Sativa in the day. Reported Pain Level Pain Score 4,5: Self Report Assessment PT Clinical Summary Pt presents with joint pain and fibromyalgia. Reports she has had generalized pain as long back as she can remember. Reports she saw rheumatology and was dx'd with fibromyalgia then referred back to her PCP for management. She does report her cervical spine and shoulder being the most problematic. In evaluation demonstrates hypermobility, abnormal alignment, abnormal passive postures, fair lumbopelvic strength in isolated testing, and increased muscle tone in the upper traps and cervical spine in sitting. Pt will benefit from physical therapy in order to assist in reduction of discomfort, education in energy conservation and techniques for modification of activities, stability training, postural retraining in order to improve functional independence. Plan of Care Interventions Electrical Stimulation,Hot Pack/Cold Pack,Manual Therapy,Neuro Re-education,Patient/Caregiver Education,Therapeutic Activities,Therapeutic Exercise,Self-Care/Home Management,Ultrasound, Other Other Interventions Bracing, taping PT Services Indicated Yes Treatment Frequency and 2x weekly x 20 visits Duration These treatments will address the objective and functional deficits as defined above. The patient will be advanced safely and appropriately in order for the patient to progress towards his/her prior level of function. Additional exercises will be introduced and as well as a comprehensive home exercise program upon discharge, if needed, ?to ensure carryover of functional gains achieved in the clinic. This treatment plan has been reviewed and agreement upon by the patient.
--- NOTE | 2024-12-05 16:26 | OPREHPOC ---
Outpatient Therapy Plan of Care This is a Multidisciplinary Plan of Care that may contain components documented by all disciplines (PT, OT, and ST.) PT Problem 1 PT Problem #1 Knowledge Deficit PT Goal 1 Goal / Goal Update Pt will be independent in HEP Pt will verbalize understanding of diagnosis and prognosis Target Visit 10 PT Problem 2 PT Problem #2 Pain PT Goal 1 Goal / Goal Update Pt will report greatest pain level at 7/10 or less to improve ADLs and activities Target Visit 10 PT Goal 2 Goal / Goal Update Pt will report greatest pain level at 5/10 or less to improve ADLs and activities Target Visit 20 PT Problem 3 PT Problem #3 Impaired Endurance PT Goal 1 Goal / Goal Update Pt will report improved tolerance to activities with less pain and less fatigue. Target Visit 20
--- NOTE | 2024-12-22 14:15 | PCPTNOTE ---
Pt called to [facility] physical therapy appointment this date due to having a fever.
--- NOTE | 2025-01-02 07:50 | PCPTNOTE ---
Pt no showed to appointment on 12/29.
--- NOTE | 2025-02-08 11:56 | PTOPDC ---
Assessment and note entered by Xiomy Mohr, PT Evaluation Information Assessment Status Discharge - Pt Not Present Diagnosis Pain in unspecified joint, Fibromyalgia ICD-10 Condition Codes (PT) Cervicalgia M54.2,Weakness R53.1 Other ICD-10 Condition Codes ( Abnormal posture PT) Assessment PT Clinical Summary Pt has not been to therapy in 26 days. After multiple unsuccessful attempts to contact and schedule patient, we have been unable to speak with her about continuing therapy. Thus she is being discharged due to nonattendance. She may return to therapy at any time with a new prescription and we can continue her POC. Plan of Care PT Services Indicated No
== END 2025-02-09 08:01 | disposition home or self-care (01) ==
LOC: ANHHIPT 14:45
PROVIDERS: PCP Nurse Practitioner Family; Visit Provider Nurse Practitioner Family
DX: M25.50 Pain in unspecified joint (principal); M79.7 Fibromyalgia
CPT/HCPCS: 97014; 97110; 97140; 97162; 97530; 97750; G0283